=== PATIENT | male | born 1975 | race Caucasian/White ===

== ENCOUNTER → 2017-06-01 | Outpatient (CLI) | payer BC | LOC: COL.RAD 07:22 | DX: R68.82 Decreased libido (principal); E29.1 Testicular hypofunction; E23.6 Other disorders of pituitary gland | CPT/HCPCS: A9585 ==

== ENCOUNTER → 2018-08-02 | Outpatient (CLI) | payer BC ==
[~2018-08-02] MED LIST: ASPIRIN 32325 MG/TA1 PO; DEPO-TESTOS100 MG/ML IM; NEURONTIN300 MG/CAP PO; NORCO 325 MG-7.1 TAB PO; SYNTHROID0.175 MG PO
== END ==
LOC: COL.RAD 13:43
DX: M25.552 Pain in left hip (principal)
CPT/HCPCS: A9585; Q9967

== ENCOUNTER → 2019-01-10 | Outpatient (CLI) | payer BC | LOC: COL.RAD 08:00 | DX: M25.552 Pain in left hip (principal) | CPT/HCPCS: J3301 ==

== ENCOUNTER → 2019-12-27 | Outpatient (CLI) | payer BC ==
[~2019-12-27] MED LIST changes: +AMOXICILLIN 8751 TAB PO; +BACTRIM DS 8001 TAB PO; +ULTRAM 50MG TAB50 MG PO; +XYOSTED SQ
== END ==
LOC: COL.RAD 09:00
DX: M54.32 Sciatica, left side (principal); M79.605 Pain in left leg
CPT/HCPCS: J3301